=== PATIENT | male | born 1955 | race African-American/Black ===

== ENCOUNTER 2024-10-08 15:08 | Emergency (ER) | payer OTHER, MEDICARE, SELFPAY ==
[2024-10-08 15:11] VITALS: BP 86/55; PULSE 97; RESP 16; TEMP 36.9; O2SAT 97; BMI 24.7
--- NOTE | 2024-10-08 15:58 | EDS_ITS ---
HPI History of Present Illness Chief Complaint: Lower Extremity Injury PFS PFS Medical History no medical history Home Medications ?Medication ?Instructions ?Recorded ?Last Taken ?Type alfuzosin 10 mg tablet,extended 10 mg PO DAILY 5 Unknown History release 24 hr (Uroxatral) aspirin 81 mg tablet 81 mg PO DAILY 10/08/24 Unkn own History budesonide-formoterol HFA 160 2 inh inhalation BID Unknown History mcg-4.5 mcg/actuation aerosol inhaler (Breyna) ergocalciferol (vitamin D2) 50 mcg 2,000 unit PO DAILY 10/08/24 Unknown History (2,000 unit) tablet lisinopril 10 mg tablet 10 mg PO DAILY 10/08/24 Unkn own History Allergy/AdvReac Type Severity Reaction Status Date / Time Penicillins (PCN) Allergy Mild Swelling Verified 10/08/24 15:10 Social History Smoking Status: Former smoker EXAM Physical Exam Const Vital Signs: 10/08/24 15:11 10/08/24 17:39 10/08/24 19:00 Temperature 98.5 F 98.1 F Temperature Source Oral Oral Pulse Rate 97 62 95 Respiratory Rate 16 14 18 Blood Pressure 86/55 L 152/82 H 165/71 H Blood Pressure Mean 65 105 102 Pulse Ox 97 100 100 Oxygen Delivery Method Room Air Room Air Room Air 10/08/24 19:42 Temperature 98.1 F Temperature Source Pulse Rate 82 Respiratory Rate 16 Blood Pressure 162/85 H Blood Pressure Mean 110 Pulse Ox 100 Oxygen Delivery Method MDM MDM MDM Narrative Medical decision making narrative: HISTORY OF PRESENT ILLNESS: Chief complaint: Knee pain 69-year-old male here with left knee pain and swelling. He notes 2 falls in past 2 weeks. Also complains of low blood pressure. Notes he still taking his daily lisinopril despite having low blood pressure. Denies lightheadedness or dizziness. Denies chest pain or shortness of breath. Denies bilateral leg swelling. Denies syncope. Denies bleeding diathesis. Denies vomiting or diarrhea. Notes is eating and drinking normally. REVIEW OF SYSTEMS: Pertinent positives: Left knee pain, low blood pressure Pertinent negatives: As per HPI PHYSICAL EXAM: Nursing triage notes reviewed, Vital signs reviewed Constitutional: please see mdm HENT: MMM Eyes: Pupils equal round and reactive to light, Extraocular muscles intact Neck: No stridor, no JVD, full neck ROM Lungs: Clear to auscultation, No wheezing or rales. No increased work of breathing, no conversational dyspnea, no accessory muscle use, no nasal flaring. No respiratory distress noted Heart: Regular rate and rhythm, No murmurs, No rubs and No gallops, 2+ distal pulses (radial, femoral, posterior tibial) in all extremities Abdomen: Soft, there is no tenderness, rigidity, rebound or guarding, no obvious peritoneal signs, no palpable pulsatile abdominal masses, no auscultated a bdominal bruit : No CVAT Extremities: TTP over left knee but intact range of motion flexion extension. No pain on forced exam, no obvious palpable effusion Neuro: No new focal neurological deficits, cranial nerves II through XII intact, 5/5 strength in all present extremities. Intact sensation to light touch in all present extremities, 2+ reflexes bilateral patella tendons. Skin: No rash or lesions noted MEDICAL DECISION MAKING: Chief Complaint: please see HPI External records reviewed: No recent ED visits or hospitalizations noted Factors affecting care: none Social determinants of health: none History obtained from others: Friend Consults: none [facility] Narrative: The patient was initially hypotensive blood pressure 86/55 otherwise afebrile and nontoxic-appearing. Exam with TTP over left knee, slight swelling but no obvious palpable effusion I considered the following differential diagnosis: Knee fracture, dislocation, distributive shock, hemorrhagic shock, neurogenic shock, obstructive I obtained a broad lab and imaging to further determine if the patient was suffering from a life-threatening etiology. Initially treated with fluids and Toradol ALL IMAGES (IF OBTAINED) HAVE BEEN PERSONALLY REVIEWED AND INTERPRETED BY MYSELF. X-ray of the left knee was read reviewed personally myself showed no evidence of obvious fracture dislocation I have personally reviewed the patient's chest x-ray. Chest x-ray is unremarkable for pulmonary edema, pneumothorax, pneumonia or focal cardiopulmonary abnormality. Lactate is wnl indicating no end-organ hypoperfusion and/or hypoxia Lipase is wnl indicating no pancreatic inflammation. CBC with no leukocytosis, noted mild anemia but no BMP with baseline CKD, no other significant electrolyte abnormality EKG with normal sinus rhythm rate 86, normal axis, no intervals, no STEMI Urinalysis shows no evidence of urinary inflammation suggestive of UTI On reevaluation patient had intact range of motion. Blood pressure improved to 162/85. Low suspicion for septic arthritis. Patient appropriate discharge home. The patient and/or family, caregivers express understanding. The patient and/or family, caregivers agrees with the plan. Shared decision making: I will have a discussion with the patient and or visitors regarding risk/benefits of further testing or admission. They will be made aware of of the risk/benefits inherent in this decision they will be given the opportunity to voice understanding. Total critical care time today provided was at least 0 minutes. This excludes separately billable procedures. Critical care time (if documented) is secondary to the patient having high probability of clinically significant/life threatening deterioration in the patient's condition which required my urgent intervention. Impression: 1. Acute left knee pain 2. Hypotension 3. History of CKD Dispo: Discharge home This note was generated with [employer] dictation software. It may contain incorrect words, spelling, and punctuation that were not noted in review of the chart prior to signing. Lab Data Labs: Laboratory Results - last 24 hr 10/08/24 10/08/24 17:03 17:55 WBC 4.3 L RBC 4.00 L Hgb 11.2 L Hct 34.9 L MCV 87.3 MCH 28.0 MCHC 32.1 RDW Std Deviation 42.2 RDW Coeff of Yulisa 13.2 Plt Count 156 MPV 10.9 Immature Gran % (Auto) 0.200 Neut % (Auto) 54.9 Lymph % (Auto) 32.4 [place] % (Auto) 11.1 H Eos % (Auto) 1.2 Baso % (Auto) 0.2 Absolute Neuts (auto) 2.4 Absolute Lymphs (auto) 1.40 Nucleated RBC % 0 Sodium 137 Potassium 4.5 Chloride 107 Carbon Dioxide 19.6 L Anion Gap 11 BUN 34 H Creatinine 3.02 H Estim Creat Clear Calc 24.51 L Est GFR (MDRD) Non-Af 22 L BUN/Creatinine Ratio 11.2 Glucose 82 Lactic Acid < 1.0 Calcium 8.5 Total Bilirubin 0.52 AST 21 ALT 9 Alkaline Phosphatase 75 Troponin T High Sens 25 H Total Protein 6.1 Albumin 3.5 Globulin 2.6 Albumin/Globulin Ratio 1.3 Lipase 49 Urine Color Straw Urine Clarity Clear Urine pH 6.0 Ur Specific [place] 1.015 Urine Protein 30 H Urine Glucose (UA) Normal Urine Ketones Negative Urine Occult Blood Negative Urine Nitrite Negative Urine Bilirubin Negative Urine Urobilinogen Normal Ur Leukocyte Esterase Negative Urine RBC 0-5 SEEN Urine WBC 0-5 SEEN Ur Squamous Epith Cells 0-5 SEEN Urine Bacteria 0 SEEN Urine Mucus 0 SEEN Radiography Diagnostic Testing: Clinical Impression(s) from Imaging Studies Knee X-Ray 10/08/24 16:39 IMPRESSION: 1. No displaced fracture. 2. Prepatellar soft tissue swelling, as can be seen with prepatellar bursitis. 3. Kuei-ov-yydogdoo osteoarthritis. Reading Location: [facility] Chest X-Ray 10/08/24 17:10 IMPRESSION: 1. Limited exam, without evidence of an acute cardiopulmonary abnormality or displaced fracture. 2. Nodular opacity in the right lung measuring up to 1.[address] for further evaluation when clinically appropriate. Reading Location: [facility] Discharge Plan Triage Chief Complaint: Lower Extremity Injury ED Provider: Fco Arrieta Dx/Rx/DC Orders Instructions: What Is Bursitis Prescriptions: No Action aspirin 81 mg tablet 81 mg PO DAILY budesonide-formoterol [Breyna] 160-4.5 mcg/actuation HFA aerosol inhaler 2 inh inhalation BID lisinopril 10 mg tablet 10 mg PO DAILY alfuzosin [Uroxatral] 10 mg tablet extended release 24 hr 10 mg PO DAILY Rx Instructions: administer after the same meal each day ergocalciferol (vitamin D2) 50 mcg (2,000 unit) tablet 2,000 unit PO DAILY Primary Care Provider: JAIMEE CROCKER Referrals: [facility] Doctor,Out of [Non-Staff] - Activity Restrictions/Additional Instructions: Thank you for trusting us with your care today! The imaging studies of your leg were negative they do not show signs of a broken bone or dislocated bone. You do have evidence of bursitis or swelling related to small shock absorbing bursa they are located throughout the body specifically in the knee. In your case is treated with Tylenol and Meek wrap In terms of your low blood pressure. Your blood pressure improved without significant intervention. Your labs showed no evidence of significant issues to explain low blood pressure Please take Tylenol (2 pills, 650 mg), every 6 hours as needed for pain and fever control. Please return to the emergency department if your symptoms change or worsen. Please follow with your primary care physician for further outpatient evaluation and management. Print Language: Polish Disposition Disposition: Home, Self Care Discharge Date/Time: 10/08/24 19:54
--- NOTE | 2024-10-08 16:39 | RAD_ITS ---
PROCEDURE: KNEE 4 OR MORE VIEWS 10/08/2024 REASON FOR EXAM: PAIN TECHNIQUE: KNEE 4 OR MORE VIEWS COMPARISON: None FINDINGS: No displaced fracture or traumatic malalignment. Dnlu-tb-evkvzfho joint space narrowing in the medial and lateral compartments. Trace joint effusion. There is prepatellar soft tissue swelling. RAD/Knee 4 or More Views IMPRESSION: 1. No displaced fracture. 2. Prepatellar soft tissue swelling, as can be seen with prepatellar bursitis. 3. Btce-on-xiwjmesy osteoarthritis. Reading Location: [id number]
--- NOTE | 2024-10-08 16:39 | EKG12_ITS ---
Test Reason : Blood Pressure : */* mmHG Vent. Rate : 86 BPM Atrial Rate : 86 BPM P-R Int : 144 ms QRS Dur : 70 ms QT Int : 382 ms P-R-T Axes : 83 24 69 degrees QTcB Int : 457 ms Normal sinus rhythm Normal ECG Confirmed by Pako Santillan ([id number]), writer editor MELONY DSOUZA ([id number]) on 10/09/2024 1:09:02 PM Referred By: Confirmed By: Pako Santillan
--- NOTE | 2024-10-08 17:10 | RAD_ITS ---
PROCEDURE: CHEST 1 VIEW (PORTABLE) 10/08/2024 REASON FOR EXAM: HYPOTENSION TECHNIQUE: Frontal views of the chest. COMPARISON: None FINDINGS: Patient rotation limits this exam. Hardware: None Heart: The heart size is normal. Round nodule in the left perihilar region measuring 7 mm may represent a calcified lymph node. Lungs: Round nodular opacity in the right mid to upper lung zone measuring 1.6 cm. Otherwise, no focal consolidation or significant pleural effusion. Bones: No displaced fracture. RAD/Chest 1 View (Portable) IMPRESSION: 1. Limited exam, without evidence of an acute cardiopulmonary abnormality or d isplaced fracture. 2. Nodular opacity in the right lung measuring up to 1.[address] for further evaluation when clinically appropriate. Reading Location: [facility]
[2024-10-08 17:14] LABS: Hematocrit 34.9 % (40-54); Hemoglobin 11.2 g/dL (13.0-16.5); Immature Granulocytes Count 0.010 X10^3/uL (0.0-0.0); Mean Corp Hgb Conc 32.1 g/dL (32-36); Mean Corpuscular Volume 87.3 fL (80-94); Mean Platelet Vol. 10.9 fl (6.2-12.0); NRBC Flagged by Analyzer 0 % (0-5); Platelet Count 156 K/mm3 (150-450); RBC Distribution Width CV 13.2 % (11.6-14.6); RBC Distribution Width SD 42.2 fl (35.1-43.9); Red Blood Count 4.00 M/mm3 (4.6-6.2); White Blood Count 4.3 K/mm3 (4.4-11.0)
[2024-10-08 17:38] LABS: Lipase 49 U/L (13-75)
[2024-10-08 17:39] VITALS: BP 152/82; PULSE 62; RESP 14; TEMP 36.7; O2SAT 100
[2024-10-08 17:50] LABS: AST(SGOT) 21 U/L (<=37); Alanine Aminotransfer ALT/SGPT 9 U/L (<=46); Albumin, Serum 3.5 g/dL (3.4-4.8); Alkaline Phosphatase 75 U/L (40-129); Anion Gap 11 (5-15); BUN 34 mg/dL (4-19); BUN/Creat Ratio 11.2 RATIO (10-20); Calcium,Total 8.5 mg/dL (7.6-11.0); Carbon Dioxide 19.6 mmol/L (21.0-32.0); Chloride 107 mmol/L (98-108); Estimated Creatinine Clearance 24.51 ml/min (50-250); Globulin 2.6 g/dL (2.2-4.2); Glucose 82 mg/dL (70-99); Potassium 4.5 mmol/L (3.3-5.1); Troponin T High Sensitivity 25 ng/L (<=22)
[2024-10-08 17:59] LABS: Mucous, Urine 0 SEEN /hpf (<or=2+)
[2024-10-08 18:07] LABS: Color, Urine Straw (Yellow); Glucose, Dipstick Normal (Normal); Ketone-Dipstick Negative (Negative); Leukocyte Esterase-Dipstick Negative /ul (Negative); Nitrite-Dipstick Negative (Negative); Occult Blood-Urine Negative /ul (Negative); Protein-Dipstick 30 mg/dl (Negative); Specific Gravity, Urine 1.015 (1.002-1.030); Urine Bilirubin Dipstick Negative (Negative)
[2024-10-08 18:35] LABS: Red Blood Cells-Urine 0-5 SEEN /hpf (0-5); Squamous Epithelial Cells - UA 0-5 SEEN /hpf (0-5)
[2024-10-08 19:00] VITALS: BP 165/71; PULSE 95; RESP 18; O2SAT 100
[2024-10-08 19:42] VITALS: BP 162/85; PULSE 82; RESP 16; TEMP 36.7; O2SAT 100
== END 2024-10-08 19:54 | disposition home or self-care (01) ==
PROVIDERS: Emergency Provider Emergency Medicine; Visit Provider Emergency Medicine
DX: M25.562 Pain in left knee (principal); I95.9 Hypotension, unspecified; Z87.891 Personal history of nicotine dependence; N18.9 Chronic kidney disease, unspecified; W19.XXXA Unspecified fall, initial encounter
CPT/HCPCS: 71045; 73564; 80053; 81001; 83605; 83690; 84484; 85025; 93005; 96374; 99285; A4216